=== PATIENT | female | born 1950 | race Hispanic/Latino ===

== ENCOUNTER 2024-05-24 13:41 | Emergency (ER) | payer MEDICARE ==
[~2024-05-24] VITALS: Ht 160 cm; Wt 59.9 kg
[~2024-05-24 13:41] MED LIST: AMOX1TAB15 PO; CLOT15CR5 TP; FENT1PAT59 TD; FURO20TA4 PO; GABA-529 PO; HYDR25SU38 RC; HYDR25SU7 RC; MEGE400O45 PO; METO50TA18 PO; MORP15TA70 PO; OMEP20CA12 PO; ONDA-243 PO; POTA-364 PO; TRAM50TA4 PO
--- NOTE | 2024-05-24 14:03 | ERN ---
General Chief Complaint: Abnormal Labs Stated Complaint: ABN LABS Time Seen by MD: 13:42 History of Present Illness Initial Comments 74-year-old female history of CAD, HTN, possible gynecologic cancer, diabetes, history of anemia, who presents for anemia. Patient was brought in by EMS from [facility]. She was found to have a hemoglobin of 6.0 earlier today. She reports feeling weak and nauseous. PCP: Ankit Allergies: Coded Allergies: codeine (Unverified Allergy, Unknown, 01/04/24) hydrocodone (Unverified Allergy, Unknown, 01/04/24) tramadol (Unverified Allergy, Unknown, 05/24/24) Home Meds Active Scripts Magnesium Oxide (Magnesium Oxide) 250 Mg Tablet, 1 TAB PO BID for 24 Days, #30 TAB 0 Refills Prov:CAMPBELL HUMPHREYS DO 05/24/24 Potassium Chloride (Potassium Chloride) 20 Meq Tab.er.prt, 1 TAB PO BID for 14 Days, #28 TAB 0 Refills Prov:CAMPBELL HUMPHREYS DO 05/24/24 Reported Medications Hydrocortisone Acetate (Hydrocortisone Acetate) 25 Mg Supp.rect, 25 MG RC AD, EA 03/30/24 Clotrimazole/Betamethasone Dip (Clotrimazole-Betamethasone Crm) 1 %-0.05 % Cream..g., 15 GM TP AD 03/30/24 Omeprazole (Omeprazole) 20 Mg Capsule.dr, 20 MG PO AM, CAP 03/30/24 Amoxicillin/Potassium Clav (Amox Tr-K Clv 500-125 mg Tab) 500 Mg-125 Mg Tablet, 1 EACH PO TID for 7 Days, #21 TAB 02/25/24 Morphine Sulfate (Morphine Sulfate) 15 Mg Tablet, 15 MG PO Q6HPRN PRN for BREAKTHROUGH PAIN , TAB 02/23/24 Furosemide (Furosemide) 20 Mg Tablet, 20 MG PO AM, TAB 02/23/24 Potassium Chloride (Potassium Chloride) 20 Meq Tablet.er, 20 MEQ PO DAILY, TAB 02/23/24 Metoprolol Tartrate (Metoprolol Tartrate) 50 Mg Tablet, 50 MG PO BID, TAB 02/23/24 Gabapentin (Gabapentin) 100 Mg Capsule, 300 MG PO TID, CAP 02/23/24 Ondansetron (Ondansetron Odt) 4 Mg Tab.rapdis, 4 MG PO Q6HPRN PRN for NAUSEA/VOMITING, TAB 02/23/24 Megestrol Acetate (Megace 400Mg/10Ml) 400 Mg/10 Ml (10 Ml) Oral.susp, 400 MG PO AM, ML 02/23/24 Fentanyl (Fentanyl) 12 Mcg/Hour Patch.td72, 1 EACH TD Q72H 02/23/24 Hydrocortisone Acetate (Anusol-Hc) 25 Mg Supp.rect, 25 MG RC BID, EA 02/23/24 Tramadol Hcl (Tramadol HCl) 50 Mg Tablet, 50 MG PO TIDP PRN for PAIN, TAB 01/04/24 Past Medical History Past Medical History: A-Fib, Anemia, Diabetes-Type II, GERD, High Cholesterol, Hypertension, Other Medical History Other: HEMORROIDS Past Surgical History: Other Surgical History Other: COLOSTOMY, BILATERAL NEPHROSTOMY TUBES Family History Family History: Negative Social History Social History: Lives with family Female( History) History: Not Applicable ROS Dictation CONSTITUTIONAL: No chills, no fever, no weakness, no diaphoresis, no malaise. HEAD/FACE: No signs of trauma. EENT: No eye pain, no blurred vision, no tearing, no double vision, no ear pain, no ear discharge, no nose pain, no nasal congestion, no throat pain, no throat swelling, no mouth pain. RESPIRATORY: No cough, no orthopnea, no SOB, no stridor, no wheezing. CARDIOVASCULAR: No chest pain, no edema, no palpitations, no syncope. GASTROINTESTINAL/ABDOMINAL: No abdominal pain, no constipation, no diarrhea, no nausea, no vomiting. GENITOURINARY: No abnormal discharge, no dysuria, no frequent urination, no hematuria. No complaints of pain in the genitals. MUSCULOSKELETAL: No back pain, no gout, no joint pain, no joint swelling, no muscle pain, no muscle stiffness, no neck pain. INTEGUMENTARY: No change in color, no change in hair/nails, no dryness, no lesion, no lumps, no rash. NEUROLOGICAL/PSYCH: No anxiety, not depressed, no emotional problem, no headache, no numbness, no pre-existing deficit, no history of seizures, no tremors, no weakness. HEMATOLOGIC/LYMPHATIC: Not anemic, no history of blood clots, no apparent bleeding, no bruising, glands not swollen. All Systems Negative, Except as Noted. Physical Exam Physical Exam Dictation VITAL SIGNS: Reviewed. GENERAL APPEARANCE: Weak frail HEAD AND FACE: Non-traumatic. EYES: PERRL, pink conjunctivas, eyelid no trauma, anterior chamber clear. EARS: Pinnas intact and no signs of trauma or erythema. Ear canals clear and no discharge. TMs no erythema. NOSE: No discharge, no bleeding. OROPHARYNX: Mouth normal, teeth no caries, tongue pink. Pharynx clear, no erythema. Tonsils no exudates, no abscesses noted. Mucous membrane moist. NECK: Supple, non-tender, no thyromegaly, no masses, no JVD, no bruits. BREAST: Deferred. CHEST: No tenderness, no crepitus, no paradoxical movement, no retractions. LUNGS: Clear, well-ventilated, symmetric, no rales, no wheezing, no rhonchi, no stridor, good breath sounds bilaterally. HEART: Regular rate, regular rhythm, no murmur, no gallops. VASCULAR: No peripheral edema. ABDOMEN: Soft, positive bowel sounds, nondistended, no guarding, nontender, no rebound, no masses no hepatomegaly, no splenomegaly, no Crisostomo's sign, no hernias. RECTAL: Deferred. GENITAL: Deferred. NEUROLOGICAL: Normal speech, gross motor function intact, gross sensory function intact. MUSCULOSKELETAL: Neck nontender, full range of motion, back nontender, full range of motion. EXTREMITIES: Nontender, full range of motion. SKIN: Color pink, dry, no turgor, no rash, no lacerations, no abrasions, no contusions. LYMPHATICS: Deferred. Results Laboratory and Microbiology Lab and Micro Result Laboratory Tests Test 05/24/24 14:28 05/24/24 16:23 05/24/24 17:50 05/24/24 20:15 White Blood Count 10.6 K/uL (4.8-10.8) Red Blood Count 2.52 MIL/uL (4.00-5.50) L Hemoglobin 7.9 g/dL (12.0-16.0) L Hematocrit 23.4 % (36-48) L Mean Corpuscular Volume 92.9 fL (79-99) Mean Corpuscular Hemoglobin 31.3 pg (27.0-33.0) Mean Corpuscular Hemoglobin Concent 33.8 g/dL (32.0-36.0) Red Cell Distribution Width 14.4 % (11.0-15.5) Platelet Count 181 K/uL (130-400) Mean Platelet Volume 9.3 fL (7.5-10.5) Immature Granulocyte % (Auto) 0.9 % (0-1) Neutrophils (%) (Auto) 92.1 % (40.0-77.0) H Lymphocytes (%) (Auto) 4.4 % (21.0-51.0) L Monocytes (%) (Auto) 2.2 % (3.0-13.0) L Eosinophils (%) (Auto) 0.2 % (0.0-8.0) Basophils (%) (Auto) 0.2 % (0.0-5.0) Neutrophils # (Auto) 9.7 K/uL (1.8-7.7) H Lymphocytes # (Auto) 0.5 K/uL (1.0-4.8) L Monocytes # (Auto) 0.2 K/uL (0.1-1.0) Eosinophils # (Auto) 0.02 K/uL (0.00-0.70) Basophils # (Auto) 0.02 K/uL (0.00-0.20) Absolute Immature Granulocyte (auto 0.10 K/uL (0-1) Nucleated Red Blood Cells 0.0 % (0.0-0.19) White Cell Morphology Comment See comments Prothrombin Time 12.2 SEC (9.6-11.6) H Prothromb Time International Ratio 1.14 (0.85-1.15) Sodium Level 125 mmol/L (136-145) L Potassium Level 2.6 mmol/L (3.5-5.1) *L Chloride Level 83 mmol/L (101-111) *L Carbon Dioxide Level 43 mmol/L (21-32) *H Blood Urea Nitrogen 11 mg/dL (7-18) Creatinine 0.5 mg/dL (0.5-1.0) Glomerular Filtration Rate Calc 98 mL/min (>90) Random Glucose 231 mg/dL (70-105) H Total Calcium 9.4 mg/dL (8.5-10.1) Magnesium Level 0.80 mg/dL (1.80-2.40) *L Total Creatine Kinase 36 U/L (21-232) Troponin I High Sensitivity 6.2 ng/L (4-50) B-Type Natriuretic Peptide 100 pg/mL (0-100) Activated Partial Thromboplast Time 26.4 SEC (26.3-35.5) Urine Color LIGHT-YELLOW (YELLOW) LIGHT-YELLOW (YELLOW) Urine Appearance HAZY (CLEAR) HAZY (CLEAR) Urine pH 8.5 (5.0-8.0) H 8.5 (5.0-8.0) H Urine Specific [place] 1.004 (1.001-1.031) 1.009 (1.001-1.031) Urine Protein 20 mg/dL (NEGATIVE) H 30 mg/dL (NEGATIVE) H Urine Glucose (UA) NEGATIVE mg/dL (NEGATIVE) NEGATIVE mg/dL (NEGATIVE) Urine Ketones NEGATIVE mg/dL (NEGATIVE) NEGATIVE mg/dL (NEGATIVE) Urine Occult Blood NEGATIVE (NEGATIVE) NEGATIVE (NEGATIVE) Urine Nitrate NEGATIVE (NEGATIVE) 2+ (NEGATIVE) H Urine Bilirubin NEGATIVE mg/dL (NEGATIVE) NEGATIVE mg/dL (NEGATIVE) Urine Urobilinogen 0.2 mg/dL (0.2-1.0) 0.2 mg/dL (0.2-1.0) Urine Leukocyte Esterase 500 [place]/uL (NEGATIVE) H NEGATIVE [place]/uL Urine RBC 0-1 /HPF (0-1) 0-1 /HPF (0-1) Urine WBC 6-10 /HPF (0-1) H 0-1 /HPF (0-1) Urine Triple Phosphate Crystals RARE /LPF (None Seen) RARE /LPF (None Seen) Urine Bacteria FEW /HPF (None Seen) FEW /HPF (None Seen) Urine Squamous Epithelial Cells RARE /HPF (0-2) MDM CC: Sent over for abnormal labs possibly low hemoglobin and and abnormal electrolytes Historian: Patient although she is very weak. Son provided much of the history. Comorbidities: Atrial fibrillation, anemia, diabetes type 2, hypertension, DLD, GERD, breast cancer Limitations by social determinants of health: None Differential diagnosis: Hemoglobin, bleeding, electrolyte abnormality, other labs: Hemoglobin 7.9, normocytic anemia. Coags stable Chemistry shows a sodium of 125, potassium 2.6 chloride of 83. Elevated BUN to creatinine ratio. Magnesium 0.8. Troponin is stable. CK-MB stable. Patient is started on hypokalemia hypomagnesemia protocol. Given 1 L normal saline for the hyponatremia and hypochloremia. I considered admission for electrolyte correction, but it discussed the case with the patient's primary doctor Dr. Pham and he reports that he can take care of this at the facility. He asked that we get a urinalysis. Family updated. Consultation: Dr Pham, patient's PCP. Decision to DC. Family updated. Given town marshal referral. Note that there was a prolonged stay in ED in order to coordinate transfer back to SNF. ED Course Orders Procedure Category Date Status Time Cardiac Panel LAB 05/24/24 Complete 13:54 Cbc With Differential LAB 05/24/24 Complete 13:54 Basic Metabolic Panel LAB 05/24/24 Complete 13:54 B-Type Natriuretic LAB 05/24/24 Complete Peptide 13:54 Magnesium LAB 05/24/24 Complete 13:54 Prothrombin Time With LAB 05/24/24 Complete INR 13:54 Urinalysis Profile LAB 05/24/24 Complete 13:54 Type And Screen BBK 05/24/24 Complete 13:54 Initiate Magnesium CPOE 05/24/24 Transmitted Protocol 15:55 Initiate Po ИРИНА 05/24/24 Complete Hypokalemia Protoc 15:55 0.9%Nacl 1000ml (Ns PHA 05/24/24 Complete 1000ml) 16:00 12 Lead Ekg Tracing- EKG 05/24/24 Resulted Technical 15:56 Partial LAB 05/24/24 Complete Thromboplastin Time 16:46 Culture Urine ATIYA 05/24/24 Complete 18:02 Urinalysis Profile LAB 05/24/24 Complete 20:16 Current Medications Medications (Trade) Dose Ordered Sig/Ramses Route PRN Reason Start Time Stop Time Status Last Admin Dose Admin Sodium Chloride 1,000 ml @ 0 mls/hr ONCE ONCE IV 05/24/24 16:00 05/24/24 16:01 DC 05/24/24 16:34 Vital Signs Date Time Temp Pulse Resp B/P (MAP) Pulse Ox O2 Delivery O2 Flow Rate FiO2 05/24/24 23:45 88 18 131/53 98 Room Air* 0 21 05/24/24 17:54 97.9 78 16 125/49 97 Room Air* 3.0 N/A Nasal Cannula* 05/24/24 16:35 97.9 84 16 115/55 97 Room Air* 3.0 N/A Nasal Cannula* 05/24/24 15:03 97.9 80 16 122/62 97 Room Air* 0 21 05/24/24 13:43 97.9 80 16 122/62 97 Nasal Cannula 3.0 DX & DISP Disposition: Inpatient Departure Impression: Primary Impression: Anemia Additional Impressions: Hyponatremia, Hypokalemia, Hypomagnesemia, Gynecologic cancer Condition: Stable Scripts Magnesium Oxide (Magnesium Oxide) 250 Mg Tablet 1 TAB PO BID for 24 Days, #30 TAB 0 Refills Prov: CAMPBELL HUMPHREYS DO 05/24/24 Potassium Chloride (Potassium Chloride) 20 Meq Tab.er.prt 1 TAB PO BID for 14 Days, #28 TAB 0 Refills Prov: CAMPBELL HUMPHREYS DO 05/24/24 Additional Instructions: You have some electrolyte abnormalities including low potassium, low magnesium, and low-sodium. Be sure to eat a well-balanced diet. I have prescribed potassium and magnesium supplementation. Please take as prescribed. I recommend a lab recheck in 24-48 hours. The hemoglobin is stable. There is no indication for blood transfusion at this time. You would likely benefit from a gynecological evaluation. This can be done as an outpatient. I've give you a referral to Dr Bates and Dr Menendez. Call for an outpatient appointment. Please follow up with primary provider. Return to the emergency department as needed. Referrals: ANDRÉS SOLORZANO MD (PCP) ELIJAH BATES JR, MD ELLIS,CAMPBELL CARCAMO DO May 24, 2024 14:03
[2024-05-24 15:03] LABS: BASOPHILS # (AUTO) 0.02 K/uL (0.00-0.20); BASOPHILS % (AUTO) 0.2 % (0.0-5.0); EOSINOPHILS # (AUTO) 0.02 K/uL (0.00-0.70); EOSINOPHILS % (AUTO) 0.2 % (0.0-8.0); HEMATOCRIT 23.4 % (36-48); LYMPHOCYTES # (AUTO) 0.5 K/uL (1.0-4.8); LYMPHOCYTES % (AUTO) 4.4 % (21.0-51.0); MEAN CORPUSCULAR HEMOGLOBIN 31.3 pg (27.0-33.0); MEAN CORPUSCULAR HGB CONC 33.8 g/dL (32.0-36.0); MEAN CORPUSCULAR VOLUME 92.9 fL (79-99); MONOCYTES # (AUTO) 0.2 K/uL (0.1-1.0); MONOCYTES % (AUTO) 2.2 % (3.0-13.0); NEUTROPHILS # (AUTO) 9.7 K/uL (1.8-7.7); NEUTROPHILS % (AUTO) 92.1 % (40.0-77.0); PLATELET COUNT (AUTO) 181 K/uL (130-400); RED BLOOD CELL COUNT(AUTO) 2.52 MIL/uL (4.00-5.50); RED CELL DISTRIBUTION WIDTH 14.4 % (11.0-15.5); WHITE BLOOD COUNT (AUTO) 10.6 K/uL (4.8-10.8)
[2024-05-24 15:23] LABS: CREATININE 0.5 mg/dL (0.5-1.0)
[2024-05-24 15:28] LABS: MAGNESIUM 0.8 mg/dL (1.80-2.40); POTASSIUM 2.6 mmol/L (3.5-5.1)
[2024-05-24 15:37] LABS: B-TYPE NATRIURETIC PEPTIDE 100 pg/mL (0-100)
[2024-05-24 15:40] LABS: INR 1.14 (0.85-1.15); PROTHROMBIN TIME 12.2 SEC (9.6-11.6)
[2024-05-24] MEDS: 0.9%NACL 1000ML 1,000 ML IV ONE (16:34)
--- NOTE | 2024-05-24 17:19 | EKG ---
[facility] Test Date: 2024-05-24 Test Time: 16:13:14 Pat Name: EMERITA EVANS Department: ED Room: Gender: F Survey Supervisor: [id number] : 1950 Requested By: CAMPBELL HUMPHREYS Order Number: [id number] Reading MD: Fifi Quijano Measurements Intervals [place] Rate: 86 P: 0 [place]: 0 QRS: -24 QRSD: 94 T: -14 QT: 450 QTc: 540 Interpretive Statements Sinus rhythm with sinus arrhythmia Inferior infarct, old Consider anterior infarct Prolonged QT interval Compared to ECG 03/30/2024 15:07:15 Prolonged QT interval now present Sinus tachycardia no longer present Myocardial infarct finding still present Electronically Signed On 05-25-2024 17:25:13 [employer]E [employer] [place] by Fifi Quijano Please click the below link to view image of tracing.
[2024-05-24 17:54] VITALS: TEMP 97.9
[2024-05-24 18:01] LABS: BILIRUBIN,URINE NEGATIVE (NEGATIVE); COLOR,URINE LIGHT-YELLOW (YELLOW); GLUCOSE, URINE (UA) NEGATIVE (NEGATIVE); KETONES,URINE NEGATIVE (NEGATIVE); LEUKOCYTE ESTERASE ,URINE 500 Leu/uL (NEGATIVE); NITRATE,URINE NEGATIVE (NEGATIVE); OCCULT BLOOD,URINE NEGATIVE (NEGATIVE); PH,URINE 8.5 (5.0-8.0); PROTEIN,URINE 20 mg/dL (NEGATIVE); UROBILINOGEN,URINE 0.2 mg/dL (0.2-1.0)
[2024-05-24 18:02] LABS: ADD UA MICROSCOPIC YES; APPEARANCE,URINE HAZY (CLEAR)
[2024-05-24 18:11] LABS: BACTERIA,URINE FEW /HPF (None Seen); MUCUS,URINE RARE LPF (None Seen); RBC,URINE 0-1 /HPF (0-1); TRIPLE PHOSPHATE CRYSTAL,UR RARE /LPF (None Seen)
[2024-05-24] MEDS ORDERED: POTA-202 PO (18:12)
[2024-05-24] MEDS ORDERED: MAGN250T39 PO (18:12)
--- NOTE | 2024-05-24 18:18 | NUR ---
RIGHT NEPHROSTOMY 200ML LEFT NEPHROSTOMY 150ML
--- NOTE | 2024-05-24 20:23 | NUR ---
EMS CALLED TO TRANSPORT BACK TO [facility]
[2024-05-24 20:34] LABS: BILIRUBIN,URINE NEGATIVE (NEGATIVE); COLOR,URINE LIGHT-YELLOW (YELLOW); GLUCOSE, URINE (UA) NEGATIVE (NEGATIVE); KETONES,URINE NEGATIVE (NEGATIVE); LEUKOCYTE ESTERASE ,URINE NEGATIVE Leu/uL (NEGATIVE); NITRATE,URINE 2+ (NEGATIVE); OCCULT BLOOD,URINE NEGATIVE (NEGATIVE); PH,URINE 8.5 (5.0-8.0); PROTEIN,URINE 30 mg/dL (NEGATIVE); UROBILINOGEN,URINE 0.2 mg/dL (0.2-1.0)
[2024-05-24 20:48] LABS: ADD UA MICROSCOPIC YES; APPEARANCE,URINE HAZY (CLEAR)
[2024-05-24 21:14] LABS: BACTERIA,URINE FEW /HPF (None Seen); RBC,URINE 0-1 /HPF (0-1); SQUAMOUS EPITHELIAL CELL,UR RARE /HPF (0-2); TRIPLE PHOSPHATE CRYSTAL,UR RARE /LPF (None Seen); WBC,URINE 0-1 /HPF (0-1)
--- NOTE | 2024-05-24 23:43 | NUR ---
EMS IS HERE FOR PT
[2024-05-24 23:45] VITALS: BP 131/53; PULSE 88; RESP 18; O2SAT 98
--- NOTE | 2024-05-24 23:54 | NUR ---
PT DEPARTED BY [facility] FIELD INSPECTOR TEAM TO [facility]
== END 2024-05-24 23:55 ==
LOC: EDH 13:41
DX: D64.89 Other specified anemias (principal); E83.42 Hypomagnesemia; E87.1 Hypo-osmolality and hyponatremia; E87.6 Hypokalemia; C50.919 Malignant neoplasm of unspecified site of unspecified female breast; E11.9 Type 2 diabetes mellitus without complications; E78.00 Pure hypercholesterolemia, unspecified; I10 Essential (primary) hypertension; K21.9 Gastro-esophageal reflux disease without esophagitis; Z79.899 Other long term (current) drug therapy; Z88.5 Allergy status to narcotic agent; Z98.890 Other specified postprocedural states
CPT/HCPCS: 99285; 96361; 96360; 82550; 83735; 84484; 80048; 83880; 85025; 85610; 85730; 86850; 86900; 86901; 87086 ×2; 87186; 81001 ×2; 36415; 93005; J7030